=== PATIENT | male | born 1955 | race Caucasian/White ===

== ENCOUNTER 2020-04-18 11:41 | Outpatient (REF) | payer MEDICARE, OTHER, SELFPAY | END 2020-04-18 11:42 | disposition home or self-care (01) | LOC: HO.BBR 11:41 | PROVIDERS: Visit Provider Internal Medicine Hematology & Oncology | DX: Z13.89 Encounter for screening for other disorder (principal) ==

== ENCOUNTER 2020-04-18 12:23 | Outpatient (REF) | payer SELFPAY ==
[2020-04-18 13:36] LABS: Cholesterol 195 mg/dL
== END 2020-04-18 12:24 | disposition home or self-care (01) ==
LOC: HO.LNC 12:23
PROVIDERS: Visit Provider Pathology Anatomic Pathology & Clinical Pathology
DX: Z13.89 Encounter for screening for other disorder (principal)
CPT/HCPCS: 36415; 82465

== ENCOUNTER 2020-07-11 12:16 | Outpatient (REF) | payer MEDICARE, SELFPAY | END 2020-07-11 12:17 | disposition home or self-care (01) | LOC: HO.BBR 12:16 | PROVIDERS: Visit Provider Internal Medicine Hematology & Oncology | DX: Z13.89 Encounter for screening for other disorder (principal) ==

== ENCOUNTER 2022-04-15 14:01 | Outpatient (REF) | payer MEDICARE, OTHER, SELFPAY | END 2022-04-15 14:02 | disposition home or self-care (01) | LOC: HO.BBR 14:01 | PROVIDERS: PCP Internal Medicine; Visit Provider Internal Medicine Hematology | DX: Z13.89 Encounter for screening for other disorder (principal) ==

== ENCOUNTER 2022-07-15 12:43 | Outpatient (REF) | payer MEDICARE, OTHER, SELFPAY | END 2022-07-15 12:44 | disposition home or self-care (01) | LOC: HO.BBR 12:43 | PROVIDERS: Visit Provider Internal Medicine Hematology | DX: Z13.89 Encounter for screening for other disorder (principal) ==

== ENCOUNTER 2022-10-14 12:46 | Outpatient (REF) | payer MEDICARE, OTHER, SELFPAY | END 2022-10-14 12:47 | disposition home or self-care (01) | LOC: HO.BBR 12:46 | PROVIDERS: Visit Provider Internal Medicine Hematology | DX: Z13.89 Encounter for screening for other disorder (principal) ==

== ENCOUNTER 2023-01-14 12:22 | Outpatient (REF) | payer MEDICARE, OTHER, SELFPAY | END 2023-01-14 12:23 | disposition home or self-care (01) | LOC: HO.BBR 12:22 | PROVIDERS: PCP Internal Medicine; Visit Provider Internal Medicine Hematology | DX: Z13.89 Encounter for screening for other disorder (principal) ==

== ENCOUNTER 2025-01-03 15:21 | Outpatient (REF) | payer MEDICARE, SELFPAY ==
--- OUTSIDE RECORDS SUMMARY | 2025-01-03 19:09 | XMS_ITS | Clinical Summary ---
Author Organization [facility] Address [address] [place] [address] Care Team Providers Care Plastic Bubble Packer Name Role Phone Unavailable Primary Care Provider Unavailabl e Source Comments PLEASE NOTE, if this patient is a minor, it may be UNLAWFUL to discuss sensitive information that is contained in these records (such as FAMILY PLANNING, MENTAL HEALTH or SUBSTANCE ABUSE) with the minor patient's parent or other person without the patient's specific authorization.[facility] Medications No known medications Active Problems No known active problems Social History Tobacco Use Types Packs/Day Years Used Date Smoking Tobacco: Never Assessed Social Connections Answer Date Recorded Connectedness 0 12/08/2023 Financial Resource Strain Answer Date R ecorded Financial Resource Strain 0 2021 Stress Answer Date Recorded Stress 0 12/07/2021 Physical Activity Answer Date Recorded Physical Activity 0 12/07/2021 Food Insecurity Answer Date Recorded Food 0 12/15/2023 Transportation Needs Answer Date Record ed Transportation 0 12/07/2021 Housing Stability Answer Date Recorded Housing 0 12/07/2021 Safety and Environment Answer Date Medhat rded Safety 0 12/07/2021 Utilities Answer Date Recorded Utilities 0 12/07/2021 Employment Answer Date Recorded Stress 0 12/08/2023 Sex and Gender Information Value Date Recorded Sex Assigned at Not on file Legal Sex Male 6:32 AM PST Gender Identity Not on file Sexual Orientation Not on file Last Filed Vital Signs Vital Sign Reading Time Taken Comments Blood Pressure 113/75 12/16/2021 11:15 AM EDT Pulse 62 12/16/2021 11:15 AM EDT Temperature - - Respiratory Rate - - Oxygen Saturation - - Inhaled Oxygen Concentration - - Weight - - Height - - Body Mass Index - - Plan of Treatment Not on file Insurance [place] [facility] [place] [id number]
== END 2025-01-03 15:22 | disposition home or self-care (01) ==
LOC: HO.BBR 15:21
PROVIDERS: PCP Internal Medicine; Visit Provider Internal Medicine Hematology
DX: Z13.89 Encounter for screening for other disorder (principal)